=== PATIENT | female | born 1945 | race Caucasian/White ===

== ENCOUNTER 2022-04-25 09:25 | Emergency (ER) | payer MEDICARE, BC ==
[2022-04-25] MEDS ORDERED: Ketorolac Tromethamine 30 MG/ML VIAL ONE (10:16)
[2022-04-25 10:26] LABS: #Basophils 0.1 10x3/uL (0.0-0.2); #Eosinphils 0.3 10x3/uL (0.0-0.5); #Monocytes 0.7 10x3/uL (0.0-1.1); #Neutrophils 4.3 10x3/uL (1.5-8.4); %Basophils 0.7 % (0.0-2.0); %Eosinophils 4.8 % (0.0-6.0); %Lymphocytes 23.4 % (18.0-47.0); %Monocytes 10.3 % (0.0-10.0); %Neutrophils 60.7 % (40.0-75.0); Hemoglobin 13.3 g/dL (12.0-15.5); Mean Corpuscular HGB CONC 33.9 g/dL (32.0-36.0); Mean Corpuscular Hemoglobin 28.7 pg (27.0-33.0); Mean Corpuscular Volume 84.7 fl (81.6-98.3); Mean Platelet Volume 9.7 fl (7.4-10.4); Platelet Count 204 10x3/uL (150-450); Red Blood Cell (RBC) Count 4.63 10x6/uL (3.90-5.03)
[2022-04-25 10:43] LABS: ALT (SGPT) 9 U/L (8-55); AST (SGOT) 15 U/L (5-34); Albumin 4.2 g/dL (3.4-4.8); Alkaline Phosphatase 77 U/L (40-110); Anion Gap 14 mmol/L (10-20); BUN (Urea Nitrogen) 22 mg/dL (9.8-20.1); Bilirubin, Total 1.1 mg/dL (0.2-1.2); Calc. Creatinine Clearance 0 mL/min (70-130); Calcium 9.6 mg/dL (7.8-10.44); Carbon Dioxide 21 mmol/L (23-31); Chloride 108 mmol/L (98-107); Estimated GFR 54; Globulin 2.9 g/dL (2.4-3.5); Glucose 113 mg/dL (83-110); Potassium 3.9 mmol/L (3.5-5.1); Protein, Total 7.1 g/dL (5.8-8.1); Sodium 139 mmol/L (136-145)
[2022-04-25 10:58] LABS: SARS-CoV-2 NAA Rapid Test Not Detected (NotDetected)
== END 2022-04-25 11:33 | disposition home or self-care (01) ==
LOC: CSHERS 09:25
DX: R07.9 Chest pain, unspecified (principal); R05.9 Cough, unspecified; I10 Essential (primary) hypertension; I25.10 Atherosclerotic heart disease of native coronary artery without angina pectoris; E03.9 Hypothyroidism, unspecified; Z20.822 Contact with and (suspected) exposure to COVID-19; Z79.899 Other long term (current) drug therapy
CPT/HCPCS: 0240U; 71045; 80053; 84484; 85025; 85379; 93005; 36415; 96374; J1885

== ENCOUNTER 2022-06-25 11:14 | Outpatient (CLI) | payer MEDICARE, BC ==
[2022-06-25 12:47] LABS: Hemoglobin 13.3 g/dL (12.0-15.5); Mean Corpuscular HGB CONC 30.9 g/dL (32.0-36.0); Mean Corpuscular Hemoglobin 27.6 pg (27.0-33.0); Mean Corpuscular Volume 89.2 fl (81.6-98.3); Platelet Count 150 10x3/uL (150-450); RBC Distribution Width 16.4 % (11.5-14.5); Red Blood Cell (RBC) Count 4.82 10x6/uL (3.90-5.03); White Blood Cell (WBC) Count 5.5 10x3/uL (3.5-10.5)
[2022-06-25 12:50] LABS: Prothrombin Time 10.5 sec (9.5-12.1)
[2022-06-25 12:59] LABS: Anion Gap 15 mmol/L (10-20); BUN (Urea Nitrogen) 22 mg/dL (9.8-20.1); Calc. Creatinine Clearance 0 mL/min (70-130); Calcium 9.2 mg/dL (7.8-10.44); Carbon Dioxide 20 mmol/L (23-31); Chloride 114 mmol/L (98-107); Estimated GFR 62; Glucose 115 mg/dL (83-110); Potassium 4.4 mmol/L (3.5-5.1); Sodium 145 mmol/L (136-145)
== END 2022-06-25 11:15 | disposition home or self-care (01) ==
LOC: CSHLAB 11:14
PROVIDERS: ATTEND Specialist
DX: Z01.818 Encounter for other preprocedural examination (principal); I65.29 Occlusion and stenosis of unspecified carotid artery
CPT/HCPCS: 80048; 85027; 85610; 93005; 93010

== ENCOUNTER 2022-06-26 09:25 | Inpatient (IN) | payer MEDICARE, BC ==
[2022-06-26] MEDS ORDERED: PHENYLEPHRINE-NS 100 MCG/ML 10 ML SYRINGE ONE (11:14)
[2022-06-26] MEDS ORDERED: Lidocaine 1% (PF) 30 ML VIAL ONE (11:14)
[2022-06-26] MEDS ORDERED: Heparin 10,000 UNITS/ 10 ML VIAL ONE (11:14)
[2022-06-26] MEDS ORDERED: Atropine Sulfate 0.4 mg/1 ml Vial ONE (11:15)
[2022-06-26] MEDS ORDERED: Ascorbic Acid 500 mg Chewable Tablet ONE (11:25)
[2022-06-26] MEDS ORDERED: Aspirin 325 MG TAB ONE (11:25)
[2022-06-26] MEDS ORDERED: Phenylephrine 40 MG/NS 250 ML 0 ML ONE (11:27)
[2022-06-26] MEDS ORDERED: Fentanyl 100 MCG/2 ML VIAL ONE (11:53)
[2022-06-26] MEDS ORDERED: Midazolam HCl 2 mg/2 ml Vial ONE (11:54)
[2022-06-26 14:26] VITALS: BMI 25.3
[2022-06-26] MEDS ORDERED: FLU VACC QS2022-23(65YR UP)/PF 240 MCG/0.7 ML SYRINGE IM ONE (16:00)
[2022-06-26] MEDS ORDERED: Furosemide 20 MG TAB PO PRN (16:03)
[2022-06-26] MEDS ORDERED: Hyoscyamine SL 0.125 MG TAB SL PRN (16:03)
[2022-06-26] MEDS ORDERED: Nitroglycerin 0.4 MG TAB (25 Tab Bottle) SL PRN (16:03)
[2022-06-26] MEDS ORDERED: Midodrine HCl 2.5 MG TAB PO PRN (16:03)
[2022-06-26] MEDS ORDERED: Clopidogrel Bisulfate 300 MG TAB PO SCH (16:15)
[2022-06-26] MEDS ORDERED: Diazepam 5 MG TAB PO PRN (16:18)
[2022-06-26] MEDS ORDERED: Docusate 100 MG CAP PO PRN (16:21)
[2022-06-26] MEDS ORDERED: Loratadine 10 MG TAB PO PRN (16:23)
[2022-06-26] MEDS ORDERED: Losartan Potassium 50 MG TAB PO SCH (16:45)
[2022-06-26] MEDS ORDERED: Iopamidol 300 61% 100 ML VIAL FS ONE (18:10)
[2022-06-26] MEDS: Mometasone/Formoterol 60 PUFF AER INH SCH (20:00)
[2022-06-26] MEDS: tiZANidine HCl 4 MG TAB PO SCH (20:25)
[2022-06-26] MEDS: Atenolol 25 MG TAB PO SCH (20:29)
[2022-06-26] MEDS: Icosapent Ethyl 1 GM CAPSULE PO SCH (20:30)
[2022-06-26] MEDS: Saccharomyces boulardii 250 MG CAP PO SCH (20:30)
[2022-06-26] MEDS: Trospium 20 MG TAB PO SCH (20:30)
[2022-06-26] MEDS ORDERED: Rosuvastatin 20 MG TAB PO SCH (21:00)
[2022-06-26] MEDS ORDERED: Doxepin HCl 10 MG CAP PO SCH (21:00)
[2022-06-26] MEDS ORDERED: Melatonin 3 MG TAB PO SCH (21:00)
[2022-06-26] MEDS ORDERED: Zolpidem Tartrate 5 MG TAB PO SCH (21:00)
[2022-06-26] MEDS ORDERED: Trospium 20 MG TAB PO SCH (21:00)
[2022-06-26] MEDS ORDERED: Ezetimibe 10 MG TAB PO SCH (21:00)
[2022-06-27 01:32] VITALS: TEMP 98
[2022-06-27 03:33] LABS: #Eosinphils 0.3 10x3/uL (0.0-0.5); #Monocytes 0.4 10x3/uL (0.0-1.1); #Neutrophils 2.3 10x3/uL (1.5-8.4); %Basophils 0.7 % (0.0-2.0); %Eosinophils 5.7 % (0.0-6.0); %Lymphocytes 31.1 % (18.0-47.0); %Monocytes 9.6 % (0.0-10.0); %Neutrophils 52.7 % (40.0-75.0); Hemoglobin 11.8 g/dL (12.0-15.5); Mean Corpuscular HGB CONC 32.1 g/dL (32.0-36.0); Mean Corpuscular Hemoglobin 27.8 pg (27.0-33.0); Mean Corpuscular Volume 86.6 fl (81.6-98.3); Mean Platelet Volume 9.6 fl (7.4-10.4); Platelet Count 131 10x3/uL (150-450); RBC Distribution Width 16.3 % (11.5-14.5); Red Blood Cell (RBC) Count 4.25 10x6/uL (3.90-5.03); White Blood Cell (WBC) Count 4.4 10x3/uL (3.5-10.5)
[2022-06-27 03:47] LABS: ALT (SGPT) 15 U/L (8-55); AST (SGOT) 18 U/L (5-34); Albumin 3.6 g/dL (3.4-4.8); Alkaline Phosphatase 66 U/L (40-110); Anion Gap 12 mmol/L (10-20); BUN (Urea Nitrogen) 17 mg/dL (9.8-20.1); Bilirubin, Total 0.7 mg/dL (0.2-1.2); Calc. Creatinine Clearance 51 mL/min (70-130); Calcium 8.9 mg/dL (7.8-10.44); Carbon Dioxide 24 mmol/L (23-31); Chloride 109 mmol/L (98-107); Estimated GFR 61; Globulin 2.6 g/dL (2.4-3.5); Glucose 100 mg/dL (83-110); Potassium 3.9 mmol/L (3.5-5.1); Protein, Total 6.2 g/dL (5.8-8.1); Sodium 141 mmol/L (136-145)
[2022-06-27] MEDS ORDERED: Levothyroxine Sodium 100 MCG TAB PO SCH (06:00)
[2022-06-27] MEDS ORDERED: Azelastine 137 MCG/Spray 30 ML NS PRN (06:11)
[2022-06-27] MEDS: Mometasone/Formoterol 60 PUFF AER INH SCH (06:35)
[2022-06-27] MEDS: Atenolol 25 MG TAB PO SCH (08:55)
[2022-06-27] MEDS: Icosapent Ethyl 1 GM CAPSULE PO SCH (08:56)
[2022-06-27] MEDS: Saccharomyces boulardii 250 MG CAP PO SCH (08:58)
[2022-06-27 08:59] VITALS: BP 162/81
[2022-06-27] MEDS: Trospium 20 MG TAB PO SCH (08:59)
[2022-06-27] MEDS: tiZANidine HCl 4 MG TAB PO SCH (09:00)
[2022-06-27] MEDS ORDERED: Losartan Potassium 50 MG TAB PO SCH (09:00)
[2022-06-27] MEDS ORDERED: Vitamin E 400 UNITS CAP PO SCH (09:00)
[2022-06-27] MEDS ORDERED: Cyanocobalamin (Vitamin B-12) 1,000 MCG TAB PO SCH (09:00)
[2022-06-27] MEDS ORDERED: Montelukast Sodium 10 mg Tablet PO SCH (09:00)
[2022-06-27] MEDS ORDERED: CHOLECALCIFEROL 5000 UNIT PO SCH (09:00)
[2022-06-27] MEDS ORDERED: [UNRECOGNIZED DRUG - OTHER] PO SCH (09:00)
[2022-06-27] MEDS ORDERED: Clopidogrel Bisulfate 75 MG TAB PO SCH (09:00)
[2022-06-27] MEDS ORDERED: CeleCOXIB 100 MG CAP PO SCH (09:00)
[2022-06-27] MEDS ORDERED: Acetaminophen 500 MG TAB PO PRN (09:29)
== END 2022-06-27 12:50 | disposition home or self-care (01) | DRG 36 ==
LOC: CSHSDC 09:25 → CSHICU 13:50
PROVIDERS: ADMIT Specialist; ATTEND Specialist
PROC: 037L3DZ Dilation of Left Internal Carotid Artery with Intraluminal Device, Percutaneous Approach (ICD-10-PCS; principal; 2022-06-26)
PROC: B3081ZZ Plain Radiography of Bilateral Internal Carotid Arteries using Low Osmolar Contrast (ICD-10-PCS; 2022-06-26)
PROC: B3021ZZ Plain Radiography of Left Subclavian Artery using Low Osmolar Contrast (ICD-10-PCS; 2022-06-26)
DX: I65.23 Occlusion and stenosis of bilateral carotid arteries (principal); Z20.822 Contact with and (suspected) exposure to COVID-19; I10 Essential (primary) hypertension; I25.118 Atherosclerotic heart disease of native coronary artery with other forms of angina pectoris; F41.1 Generalized anxiety disorder; G47.33 Obstructive sleep apnea (adult) (pediatric); E78.2 Mixed hyperlipidemia; Z79.890 Hormone replacement therapy; Z79.899 Other long term (current) drug therapy; Z79.02 Long term (current) use of antithrombotics/antiplatelets; Z88.8 Allergy status to other drugs, medicaments and biological substances; Z88.2 Allergy status to sulfonamides; Z88.1 Allergy status to other antibiotic agents; Z91.048 Other nonmedicinal substance allergy status; Z88.5 Allergy status to narcotic agent; I25.2 Old myocardial infarction; Z98.41 Cataract extraction status, right eye; Z90.710 Acquired absence of both cervix and uterus; Z82.49 Family history of ischemic heart disease and other diseases of the circulatory system; Z85.818 Personal history of malignant neoplasm of other sites of lip, oral cavity, and pharynx; Z92.21 Personal history of antineoplastic chemotherapy; Z87.891 Personal history of nicotine dependence; I95.9 Hypotension, unspecified
CPT/HCPCS: 36215; 36222; 36225; 36226; 36227; 36228; 36415; 36416; 36556; 37215; 75710; 80048; 80053; 85025; 85027; 85347; 85610; 93005; 94664; 94760; 99152; 99153; C1760; C1769; C1876; C1884; C1894; J0461; J1644; J2001; J2250; J3010; Q9967; U0003; U0005

== ENCOUNTER 2023-06-17 10:54 | Outpatient (CLI) | payer MEDICARE, BC | END 2023-06-17 10:55 | disposition home or self-care (01) | LOC: CSHRAD 10:54 | PROVIDERS: ATTEND Internal Medicine Rheumatology | DX: M46.1 Sacroiliitis, not elsewhere classified (principal); M81.0 Age-related osteoporosis without current pathological fracture; M47.814 Spondylosis without myelopathy or radiculopathy, thoracic region | CPT/HCPCS: 72070; 72202 ==

== ENCOUNTER 2023-06-18 10:42 | Outpatient (CLI) | payer MEDICARE, BC | END 2023-06-18 10:43 | disposition home or self-care (01) | LOC: CSHMAMMO 10:42 | PROVIDERS: ATTEND Obstetrics & Gynecology | DX: Z12.31 Encounter for screening mammogram for malignant neoplasm of breast (principal); Z13.820 Encounter for screening for osteoporosis; M85.851 Other specified disorders of bone density and structure, right thigh; M85.852 Other specified disorders of bone density and structure, left thigh; Z91.89 Other specified personal risk factors, not elsewhere classified; Z98.890 Other specified postprocedural states | CPT/HCPCS: 77063; 77067; 77080 ==

== ENCOUNTER 2024-03-13 09:28 | Outpatient (CLI) | payer MEDICARE, BC | END 2024-03-13 09:29 | disposition home or self-care (01) | LOC: CSHMRI 09:28 | PROVIDERS: ATTEND Neurological Surgery | DX: M48.061 Spinal stenosis, lumbar region without neurogenic claudication (principal); Z98.890 Other specified postprocedural states; M47.816 Spondylosis without myelopathy or radiculopathy, lumbar region; R93.89 Abnormal findings on diagnostic imaging of other specified body structures | CPT/HCPCS: 72100; 72148 ==

== ENCOUNTER 2024-03-18 09:27 | Emergency (ER) | payer MEDICARE, BC | END 2024-03-18 10:08 | disposition home or self-care (01) | LOC: CSHERS 09:27 | DX: K57.90 Diverticulosis of intestine, part unspecified, without perforation or abscess without bleeding (principal); I10 Essential (primary) hypertension | CPT/HCPCS: 99283 ==

== ENCOUNTER 2024-12-12 17:03 | Emergency (ER) | payer MEDICARE, BC ==
[~2024-12-12 17:03] MED LIST: Iopamidol 300 61% 100 ML VIAL FS ONE
[2024-12-12] MEDS ORDERED: Ondansetron PF 4 MG/2 ML Vial ONE (17:54)
[2024-12-12] MEDS ORDERED: Acetaminophen 500 MG TAB ONE (17:55)
[2024-12-12 18:38] LABS: #Basophils 0.05 10x3/uL (0.0-0.2); #Eosinophils Less than 0.03 10x3/uL (0.0-0.5); #Monocytes 0.44 10x3/uL (0.0-1.1); #Neutrophils 5.34 10x3/uL (1.5-8.4); %Basophils 0.7 % (0.0-2.0); %Eosinophils 0.0 % (0.0-6.0); %Lymphocytes 17.3 % (18.0-47.0); %Monocytes 6.2 % (0.0-10.0); %Neutrophils 75.7 % (40.0-75.0); Hematocrit 44.9 % (34.9-44.5); Hemoglobin 14.5 g/dL (12.0-15.5); Mean Corpuscular Hemoglobin 28.1 pg (27.0-33.0); Mean Corpuscular Volume 87.0 fL (81.6-98.3); Platelet Count 241 10x3/uL (150-450); Red Blood Cell (RBC) Count 5.16 10x6/uL (3.90-5.03); White Blood Cell (WBC) Count 7.06 10x3/uL (3.5-10.5)
[2024-12-12 18:45] LABS: ALT (SGPT) 10 U/L (Less than 34); AST (SGOT) 28 U/L (11-34); Albumin 4.5 g/dL (3.1-4.5); Alkaline Phosphatase 64 U/L (40-110); Anion Gap 24 mmol/L (10-20); BUN (Urea Nitrogen) 16 mg/dL (9.8-20.1); Bilirubin, Total 1.4 mg/dL (0.3-1.2); Calc. Creatinine Clearance 0 mL/min (70-130); Calcium 10.7 mg/dL (7.8-10.44); Carbon Dioxide 15 mmol/L (23-31); Chloride 104 mmol/L (98-107); Globulin 4.7 g/dL (2.4-3.5); Glucose 142 mg/dL (83-110); Potassium 4.0 mmol/L (3.5-5.1); Sodium 139 mmol/L (136-145)
[2024-12-12 19:44] LABS: Troponin I Less than 0.010 ng/mL (< 0.028)
[2024-12-12 20:19] LABS: Glucose, Urine (Dipstick) Normal (Negative); Leukocyte 25 (Negative); Protein, Urine (Dipstick) 100 mg/dl (Neg-Trace); Specific Gravity, Urine 1.015 (1.005-1.030)
[2024-12-12 20:36] LABS: CAUTI Indications for Culture Pelvic or flank pain; RBC/HPF 0-3 HPF (0-3); WBC/HPF 0-3 HPF (0-3)
[2024-12-12 20:37] LABS: Bacteria/HPF 1+ HPF (None Seen); Mucous/LPF 1+ LPF (<2+)
[2024-12-12 20:40] LABS: Urine Culture Reflex No No
[2024-12-12 22:14] LABS: Anion Gap 15 mmol/L (10-20); BUN (Urea Nitrogen) 16 mg/dL (9.8-20.1); Calc. Creatinine Clearance 0 mL/min (70-130); Calcium 8.3 mg/dL (7.8-10.44); Carbon Dioxide 19 mmol/L (23-31); Chloride 109 mmol/L (98-107); Glucose 101 mg/dL (83-110); Potassium 4.4 mmol/L (3.5-5.1); Sodium 139 mmol/L (136-145)
== END 2024-12-12 22:58 | disposition home or self-care (01) ==
LOC: CSHERS 17:03
DX: U07.1 COVID-19 (principal); E86.0 Dehydration; I25.10 Atherosclerotic heart disease of native coronary artery without angina pectoris; I10 Essential (primary) hypertension; E78.5 Hyperlipidemia, unspecified; E03.9 Hypothyroidism, unspecified; Z79.899 Other long term (current) drug therapy
CPT/HCPCS: 71045; 74177; 80048; 80053; 81001; 83605; 84484; 85025; 94760; J2405; Q9967; 36415; 96374

== ENCOUNTER 2025-01-02 17:40 | Emergency (ER) | payer MEDICARE, BC ==
[2025-01-02 19:25] LABS: #Basophils 0.04 10x3/uL (0.0-0.2); #Eosinophils 0.27 10x3/uL (0.0-0.5); #Monocytes 0.57 10x3/uL (0.0-1.1); #Neutrophils 2.66 10x3/uL (1.5-8.4); %Basophils 0.7 % (0.0-2.0); %Eosinophils 5.1 % (0.0-6.0); %Lymphocytes 32.8 % (18.0-47.0); %Monocytes 10.7 % (0.0-10.0); %Neutrophils 49.8 % (40.0-75.0); Hematocrit 38.6 % (34.9-44.5); Hemoglobin 12.6 g/dL (12.0-15.5); Mean Corpuscular Hemoglobin 28.4 pg (27.0-33.0); Mean Corpuscular Volume 87.1 fL (81.6-98.3); Platelet Count 159 10x3/uL (150-450); Red Blood Cell (RBC) Count 4.43 10x6/uL (3.90-5.03); White Blood Cell (WBC) Count 5.34 10x3/uL (3.5-10.5)
[2025-01-02 19:36] LABS: ALT (SGPT) 9 U/L (Less than 34); AST (SGOT) 22 U/L (11-34); Albumin 4.0 g/dL (3.1-4.5); Alkaline Phosphatase 56 U/L (40-110); Anion Gap 14 mmol/L (10-20); BUN (Urea Nitrogen) 15 mg/dL (9.8-20.1); Bilirubin, Total 1.1 mg/dL (0.3-1.2); Calc. Creatinine Clearance 0 mL/min (70-130); Calcium 9.5 mg/dL (7.8-10.44); Carbon Dioxide 23 mmol/L (23-31); Chloride 108 mmol/L (98-107); Globulin 3.5 g/dL (2.4-3.5); Glucose 98 mg/dL (83-110); Potassium 3.8 mmol/L (3.5-5.1); Sodium 141 mmol/L (136-145)
[2025-01-02 19:43] LABS: Troponin I Less than 0.010 ng/mL (< 0.028)
== END 2025-01-02 21:10 | disposition home or self-care (01) ==
LOC: CSHERS 17:40
DX: I95.9 Hypotension, unspecified (principal); R29.701 NIHSS score 1; I25.10 Atherosclerotic heart disease of native coronary artery without angina pectoris; I10 Essential (primary) hypertension; E78.5 Hyperlipidemia, unspecified; E03.9 Hypothyroidism, unspecified; Z79.899 Other long term (current) drug therapy; Z95.5 Presence of coronary angioplasty implant and graft; Z79.890 Hormone replacement therapy
CPT/HCPCS: 71045; 80053; 83880; 84484; 85025; 93005

== ENCOUNTER 2025-03-21 12:17 | Inpatient (IN) | payer MEDICARE, BC ==
[2025-03-21 13:23] LABS: #Basophils Less than 0.03 10x3/uL (0.0-0.2); #Eosinophils 0.03 10x3/uL (0.0-0.5); #Monocytes 0.68 10x3/uL (0.0-1.1); #Neutrophils 8.94 10x3/uL (1.5-8.4); %Basophils 0.2 % (0.0-2.0); %Eosinophils 0.3 % (0.0-6.0); %Lymphocytes 12.6 % (18.0-47.0); %Monocytes 6.1 % (0.0-10.0); %Neutrophils 80.5 % (40.0-75.0); Hematocrit 42.3 % (34.9-44.5); Hemoglobin 14.0 g/dL (12.0-15.5); Mean Corpuscular Hemoglobin 27.4 pg (27.0-33.0); Mean Corpuscular Volume 82.8 fL (81.6-98.3); Platelet Count 185 10x3/uL (150-450); Red Blood Cell (RBC) Count 5.11 10x6/uL (3.90-5.03); White Blood Cell (WBC) Count 11.10 10x3/uL (3.5-10.5)
[2025-03-21 13:39] LABS: ALT (SGPT) 13 U/L (Less than 34); AST (SGOT) 21 U/L (11-34); Albumin 3.9 g/dL (3.1-4.5); Alkaline Phosphatase 68 U/L (40-110); Anion Gap 17 mmol/L (10-20); BUN (Urea Nitrogen) 9 mg/dL (9.8-20.1); Bilirubin, Total 1.2 mg/dL (0.3-1.2); Calc. Creatinine Clearance 0 mL/min (70-130); Calcium 9.5 mg/dL (7.8-10.44); Carbon Dioxide 25 mmol/L (23-31); Chloride 106 mmol/L (98-107); Globulin 3.4 g/dL (2.4-3.5); Glucose 123 mg/dL (83-110); Lipase 12 U/L (8-78); Potassium 3.5 mmol/L (3.5-5.1); Sodium 144 mmol/L (136-145)
[2025-03-21 13:42] LABS: Troponin I 0.176 ng/mL (< 0.028)
[2025-03-21 15:16] LABS: Glucose, Urine (Dipstick) Normal (Negative); Leukocyte Negative (Negative); Protein, Urine (Dipstick) 100 mg/dl (Neg-Trace); Specific Gravity, Urine 1.015 (1.005-1.030)
[2025-03-21 15:26] LABS: CAUTI Indications for Culture Dysuria,urgency,freq; RBC/HPF 0-3 HPF (0-3); WBC/HPF 0-3 HPF (0-3)
[2025-03-21 15:27] LABS: Bacteria/HPF Rare-Few HPF (None Seen)
[2025-03-21 15:29] LABS: Urine Culture Reflex No No
[2025-03-21] MEDS ORDERED: Acetaminophen 325 MG TAB PO PRN (18:27)
[2025-03-21] MEDS ORDERED: Electrolyte Replacement Protocol 1 EACH FS SCH (18:30)
[2025-03-21 18:46] LABS: Magnesium 2.0 mg/dL (1.6-2.6)
[2025-03-21] MEDS ORDERED: PHOS-NAK 1 PKT PACK PO PRN (19:00)
[2025-03-21] MEDS ORDERED: Potassium Chloride 20 MEQ in Premix 1 BAG IVPB PRN (19:00)
[2025-03-21 19:08] LABS: Troponin I 0.206 ng/mL (< 0.028)
[2025-03-21 19:42] VITALS: BMI 24.7
[2025-03-21] MEDS: Pantoprazole 40 MG VIAL IVP SCH (20:07)
[2025-03-21] MEDS: Ondansetron PF 4 MG/2 ML Vial IVP PRN (20:45)
[2025-03-22 03:56] LABS: #Basophils 0.04 10x3/uL (0.0-0.2); #Eosinophils 0.04 10x3/uL (0.0-0.5); #Monocytes 0.94 10x3/uL (0.0-1.1); #Neutrophils 7.18 10x3/uL (1.5-8.4); %Basophils 0.4 % (0.0-2.0); %Eosinophils 0.4 % (0.0-6.0); %Lymphocytes 15.2 % (18.0-47.0); %Monocytes 9.7 % (0.0-10.0); %Neutrophils 74.0 % (40.0-75.0); Hematocrit 41.5 % (34.9-44.5); Hemoglobin 13.9 g/dL (12.0-15.5); Mean Corpuscular Hemoglobin 27.9 pg (27.0-33.0); Mean Corpuscular Volume 83.3 fL (81.6-98.3); Platelet Count 144 10x3/uL (150-450); Red Blood Cell (RBC) Count 4.98 10x6/uL (3.90-5.03); White Blood Cell (WBC) Count 9.70 10x3/uL (3.5-10.5)
[2025-03-22 04:02] LABS: ALT (SGPT) 44 U/L (Less than 34); AST (SGOT) 81 U/L (11-34); Albumin 3.8 g/dL (3.1-4.5); Alkaline Phosphatase 89 U/L (40-110); Anion Gap 15 mmol/L (10-20); BUN (Urea Nitrogen) 8 mg/dL (9.8-20.1); Bilirubin, Total 1.5 mg/dL (0.3-1.2); Calc. Creatinine Clearance 56 mL/min (70-130); Calcium 9.4 mg/dL (7.8-10.44); Carbon Dioxide 24 mmol/L (23-31); Chloride 105 mmol/L (98-107); Globulin 3.6 g/dL (2.4-3.5); Glucose 126 mg/dL (83-110); Potassium 4.6 mmol/L (3.5-5.1); Sodium 139 mmol/L (136-145)
[2025-03-22] MEDS: Magnesium 2 GM/50 ML(in water) 2 GM in Premix 1 BAG IVPB PRN (04:53)
[2025-03-22] MEDS: Ketorolac Tromethamine 30 MG (1 mL) VIAL IVP SCH (05:14)
[2025-03-22] MEDS: FLU (Fluad Triv) 25-26 (65UP)PF 45 MCG/0.5 ML Syringe IM ONE (08:29)
[2025-03-22] MEDS: Pantoprazole 40 MG VIAL IVP SCH (08:45)
[2025-03-22] MEDS: Losartan 50 MG TAB PO SCH ×2 (09:53→22:35)
[2025-03-22 11:26] LABS: Troponin I 0.060 ng/mL (< 0.028)
[2025-03-22] MEDS ORDERED: Dextrose 50% Abboject 50 ML SYRINGE SLOW IVP PRN (16:56)
[2025-03-22] MEDS ORDERED: Glucagon 1 MG/ML KIT IM PRN (16:56)
[2025-03-22] MEDS: Rosuvastatin 20 MG TAB PO SCH (22:33)
[2025-03-23 08:02] LABS: ALT (SGPT) 13 U/L (Less than 34); AST (SGOT) 19 U/L (11-34); Albumin 2.7 g/dL (3.1-4.5); Alkaline Phosphatase 85 U/L (40-110); Anion Gap 11 mmol/L (10-20); BUN (Urea Nitrogen) 14 mg/dL (9.8-20.1); Bilirubin, Total 1.6 mg/dL (0.3-1.2); Calc. Creatinine Clearance 43 mL/min (70-130); Calcium 8.5 mg/dL (7.8-10.44); Carbon Dioxide 23 mmol/L (23-31); Chloride 106 mmol/L (98-107); Globulin 2.9 g/dL (2.4-3.5); Glucose 93 mg/dL (83-110); Magnesium 2.0 mg/dL (1.6-2.6); Potassium 4.3 mmol/L (3.5-5.1); Sodium 136 mmol/L (136-145)
[2025-03-23 08:05] LABS: #Basophils 0.04 10x3/uL (0.0-0.2); #Eosinophils 0.29 10x3/uL (0.0-0.5); #Monocytes 0.79 10x3/uL (0.0-1.1); #Neutrophils 5.99 10x3/uL (1.5-8.4); %Basophils 0.5 % (0.0-2.0); %Eosinophils 3.5 % (0.0-6.0); %Lymphocytes 14.6 % (18.0-47.0); %Monocytes 9.4 % (0.0-10.0); %Neutrophils 71.6 % (40.0-75.0); Hematocrit 33.6 % (34.9-44.5); Hemoglobin 10.9 g/dL (12.0-15.5); Mean Corpuscular Hemoglobin 27.6 pg (27.0-33.0); Mean Corpuscular Volume 85.1 fL (81.6-98.3); Platelet Count 122 10x3/uL (150-450); Red Blood Cell (RBC) Count 3.95 10x6/uL (3.90-5.03); White Blood Cell (WBC) Count 8.36 10x3/uL (3.5-10.5)
[2025-03-23 08:45] LABS: Ovalocytes SLIGHT = 2-5 cells (100X) (0-1/hpf)
[2025-03-23] MEDS ORDERED: PROPOFOL 0 ML ONE (12:26)
[2025-03-23] MEDS ORDERED: Bupivacaine/Epinephrine 0.25% 30 ML VIAL ONE ×2 (12:28→12:44)
[2025-03-23] MEDS ORDERED: Rocuronium Bromide 10 MG/ML (10ML VIAL) ONE (13:07)
[2025-03-23] MEDS ORDERED: SUGAMMADEX SODIUM 200 MG/2 ML VIAL ONE (13:07)
[2025-03-23] MEDS ORDERED: PROPOFOL 40 ML ONE (13:07)
[2025-03-23] MEDS ORDERED: PHENYLEPHRINE-NS 100 MCG/ML 10 ML SYRINGE ONE (13:09)
[2025-03-23] MEDS ORDERED: Phenylephrine 40 MG/NS 250 ML 250 ML ONE (13:43)
[2025-03-24 04:37] LABS: #Basophils Less than 0.03 10x3/uL (0.0-0.2); #Eosinophils Less than 0.03 10x3/uL (0.0-0.5); #Monocytes 0.62 10x3/uL (0.0-1.1); #Neutrophils 5.33 10x3/uL (1.5-8.4); %Basophils 0.0 % (0.0-2.0); %Eosinophils 0.1 % (0.0-6.0); %Lymphocytes 10.4 % (18.0-47.0); %Monocytes 9.3 % (0.0-10.0); %Neutrophils 79.6 % (40.0-75.0); Hematocrit 30.3 % (34.9-44.5); Hemoglobin 9.9 g/dL (12.0-15.5); Mean Corpuscular Hemoglobin 27.7 pg (27.0-33.0); Mean Corpuscular Volume 84.9 fL (81.6-98.3); Platelet Count 132 10x3/uL (150-450); Red Blood Cell (RBC) Count 3.57 10x6/uL (3.90-5.03); White Blood Cell (WBC) Count 6.70 10x3/uL (3.5-10.5)
[2025-03-24 04:51] LABS: ALT (SGPT) 36 U/L (Less than 34); AST (SGOT) 73 U/L (11-34); Albumin 2.7 g/dL (3.1-4.5); Alkaline Phosphatase 99 U/L (40-110); Anion Gap 11 mmol/L (10-20); BUN (Urea Nitrogen) 14 mg/dL (9.8-20.1); Bilirubin, Total 0.9 mg/dL (0.3-1.2); Calc. Creatinine Clearance 50 mL/min (70-130); Calcium 8.2 mg/dL (7.8-10.44); Carbon Dioxide 23 mmol/L (23-31); Chloride 106 mmol/L (98-107); Globulin 3.2 g/dL (2.4-3.5); Glucose 127 mg/dL (83-110); Potassium 4.3 mmol/L (3.5-5.1); Sodium 136 mmol/L (136-145)
[2025-03-24] MEDS: Pantoprazole 40 MG DR.TAB PO SCH (08:55)
[2025-03-24 11:14] LABS: Magnesium 2.2 mg/dL (1.6-2.6)
[2025-03-24 16:31] VITALS: BP 169/78; TEMP 99
== END 2025-03-24 16:32 | disposition home or self-care (01) | DRG 418 ==
LOC: CSHERS 12:17 → CSHTELE 15:25
PROVIDERS: ADMIT Student in an Organized Health Care Education/Training Program; ATTEND Hospitalist
PROC: 3E03329 Introduction of Other Anti-infective into Peripheral Vein, Percutaneous Approach (ICD-10-PCS; 2025-03-21)
PROC: 0FT44ZZ Resection of Gallbladder, Percutaneous Endoscopic Approach (ICD-10-PCS; principal; 2025-03-23)
PROC: 8E0W4CZ Robotic Assisted Procedure of Trunk Region, Percutaneous Endoscopic Approach (ICD-10-PCS; 2025-03-23)
DX: K81.0 Acute cholecystitis (principal); K57.32 Diverticulitis of large intestine without perforation or abscess without bleeding; K83.09 Other cholangitis; I10 Essential (primary) hypertension; E78.5 Hyperlipidemia, unspecified; E03.9 Hypothyroidism, unspecified; I25.10 Atherosclerotic heart disease of native coronary artery without angina pectoris; K21.9 Gastro-esophageal reflux disease without esophagitis; I73.9 Peripheral vascular disease, unspecified; I77.1 Stricture of artery; R74.01 Elevation of levels of liver transaminase levels; I65.29 Occlusion and stenosis of unspecified carotid artery; K22.2 Esophageal obstruction; Z88.2 Allergy status to sulfonamides; Z88.8 Allergy status to other drugs, medicaments and biological substances; Z88.1 Allergy status to other antibiotic agents; Z91.030 Bee allergy status; Z98.890 Other specified postprocedural states; Z87.891 Personal history of nicotine dependence; Z79.899 Other long term (current) drug therapy; Z23 Encounter for immunization
CPT/HCPCS: 36415; 36416; 74177; 74181; 76376; 76705; 78226; 80053; 81001; 83605; 83690; 83735; 84484; 85025; 87040; 88304; 93005; 94760; 96365; 96375; 96376; A9537; C1889; J1100; J1885; J2270; J2272; J2405; J2470; J2543; J2704; J3475; J3480; J7042; J7120; Q0162; S2900; S8037